=== PATIENT | female | born 1990 | race Two or more races ===

== ENCOUNTER 2025-06-21 17:54 | Inpatient (IN) | payer OTHER ==
[2025-06-21] MEDS ORDERED: Acetaminophen 500 MG TAB PO PRN (18:12)
[2025-06-21] MEDS ORDERED: Methylergonovine 0.2 MG/ML VIAL IM PRN (18:12)
[2025-06-21] MEDS ORDERED: Ibuprofen 800 MG TAB PO PRN (18:12)
[2025-06-21] MEDS ORDERED: Diphenoxylate HCl/Atropine Tablet PO PRN ×2 (18:12)
[2025-06-21] MEDS ORDERED: Tranexamic Acid 1,000 MG/10 ML VIAL IVP PRN (18:12)
[2025-06-21] MEDS ORDERED: Oxytocin 30 units/NS 500 ML 500 ML IV SCH (18:12)
[2025-06-21] MEDS ORDERED: HYDROcodone/Acetaminophen 5/325 mg Tablet PO PRN ×2 (18:12)
[2025-06-21] MEDS ORDERED: hydrALAZINE 20 MG/ML VIAL SLOW IVP PRN (18:12)
[2025-06-21] MEDS ORDERED: Lidocaine 1% (PF) 30 ML VIAL SC PRN (18:12)
[2025-06-21] MEDS ORDERED: Carboprost 250 MCG/ML AMP IM PRN (18:12)
[2025-06-21] MEDS ORDERED: Ondansetron PF 4 MG/2 ML Vial IVP PRN (18:12)
[2025-06-21 18:33] LABS: Hematocrit 36.4 % (34.9-44.5); Hemoglobin 11.6 g/dL (12.0-15.5); Mean Corpuscular Hemoglobin 25.8 pg (27.0-33.0); Mean Corpuscular Volume 81.1 fL (81.6-98.3); Platelet Count 301 10x3/uL (150-450); Red Blood Cell (RBC) Count 4.49 10x6/uL (3.90-5.03); White Blood Cell (WBC) Count 11.20 10x3/uL (3.5-10.5)
[2025-06-21 18:34] VITALS: BMI 37.4
[2025-06-21] MEDS: Oxytocin 30 units/NS 500 ML 500 ML IV SCH (19:20)
[2025-06-21 23:19] LABS: Syphilis Antibody Index 0.07 S/CO (<1.00 Non-Reactive)
[2025-06-21 23:29] LABS: Hep B Surf Ag - L&D Non-Reactive S/CO (NonReactive)
[2025-06-22] MEDS: fentaNYL/Ropivacaine Epidural 100 ML ONE (00:11)
[2025-06-22] MEDS ORDERED: Ondansetron PF 4 MG/2 ML Vial IVP PRN (00:17)
[2025-06-22] MEDS ORDERED: Acetaminophen 325 MG TAB PO PRN (00:17)
[2025-06-22] MEDS ORDERED: diphenhydrAMINE 50 MG/ML VIAL IVP PRN (00:17)
[2025-06-22] MEDS ORDERED: Communication Order-Pharmacy FS SCH (00:30)
[2025-06-22] MEDS ORDERED: fentaNYL 2 mcg/Ropivacaine 0.2% Epidural 100 ML CADD EPIDURAL SCH (00:30)
[2025-06-22] MEDS ORDERED: hydrALAZINE 20 MG/ML VIAL SLOW IVP PRN (04:23)
[2025-06-22] MEDS ORDERED: Preparation H Ointment 28 GM TUBE PR PRN (04:23)
[2025-06-22] MEDS ORDERED: Milk Of Magnesia 30 ML UDCUP PO PRN (04:23)
[2025-06-22] MEDS ORDERED: Bisacodyl 10 MG SUPP PR PRN (04:23)
[2025-06-22] MEDS ORDERED: diphenhydrAMINE 25 MG CAP PO PRN (04:23)
[2025-06-22] MEDS ORDERED: Lanolin Ointment 7 GM TUBE TOP PRN (04:23)
[2025-06-22] MEDS: Ibuprofen 800 MG TAB PO SCH (05:02)
[2025-06-22] MEDS: Ferrous Sulfate 325 MG TAB PO SCH (09:58)
[2025-06-23 06:15] LABS: Hematocrit 30.9 % (34.9-44.5); Hemoglobin 9.8 g/dL (12.0-15.5)
[2025-06-23 08:33] VITALS: BP 114/62; TEMP 97.5
== END 2025-06-23 13:00 | disposition home or self-care (01) | DRG 806 ==
LOC: CSHLD 17:54 → CSHPED 06-22 04:35
PROVIDERS: ADMIT Obstetrics & Gynecology; ATTEND Obstetrics & Gynecology
PROC: 3E033VJ Introduction of Other Hormone into Peripheral Vein, Percutaneous Approach (ICD-10-PCS; principal; 2025-06-22)
PROC: 10E0XZZ Delivery of Products of Conception, External Approach (ICD-10-PCS; 2025-06-22)
PROC: 10907ZC Drainage of Amniotic Fluid, Therapeutic from Products of Conception, Via Natural or Artificial Opening (ICD-10-PCS; 2025-06-22)
DX: O48.0 Post-term pregnancy (principal); D62 Acute posthemorrhagic anemia; Z37.0 Single live birth; Z3A.40 40 weeks gestation of pregnancy; O99.02 Anemia complicating childbirth
CPT/HCPCS: 36415; 51702; 85014; 85018; 85027; 86780; 86850; 86900; 86901; 87340; J2590; J7120